=== PATIENT | male | born 1995 | race Caucasian/White ===

== ENCOUNTER 2023-03-03 15:18 | Emergency (ER) | payer BC, SELFPAY ==
[2023-03-03 15:23] VITALS: BP 161/90; PULSE 83; RESP 18; TEMP 36.8; O2SAT 99
--- NOTE | 2023-03-03 16:27 | ED.MALEGU ---
HPI - Male Genitourinary General Chief complaint: Urogenital-Male Stated complaint: Groin Pain Time Seen by Provider: 03/03/23 15:28 History of Present Illness HPI Narrative: Patient is a 27-year-old male who presents ER with groin pain. Left-sided. Ongoing over last week. Has been seen twice in having him on all a exiting [facility]. He has been told he has a hydrocele. Initially he is placed on Bactrim and prednisone. Yesterday he was placed on cefdinir. He was given urology referral because they do not have one. Discomfort persists. Denies STD exposure. No dysuria or urethral discharge. Related Data Allergies Allergy/AdvReac Type Severity Reaction Status Date / Time No Known Allergies Allergy Verified 03/03/23 15:29 Review of Systems Constitutional: Constitutional: Denies chills and Denies fever(s) Gastrointestinal: Gastrointestinal: Denies abdominal pain, Denies nausea and Denies vomiting Genitourinary: Genitourinary: Denies dysuria, Denies penile discharge and Denies testicular pain Comments: Scrotal swelling left side Integumentary/Breasts: Skin/Breast: Denies erythema and Denies rash Comments: Postural left groin PMFSH Past Medical History Medical History (Updated 03/03/23 @ 18:21 by Tee Rios MD) Healthy adult male Surgical History Surgical History (Updated 03/03/23 @ 18:21 by Tee Rios MD) No history of previous surgery Exam Narrative: GENERAL: Well-appearing, well-nourished, and in no acute distress. HEAD: Normocephalic, atraumatic. : Normal appearing penis. Scrotum swollen. There is left-sided edema. Inferiorly it seems consistent with hydrocele. More proximally there is firm induration and some pustules noted. After cleaning there is spontaneous drainage of a fluctuant area. There is tender lymphadenopathy going into the inguinal crease. EXTREMITIES: Normal range of motion. No edema. SKIN: Warm, dry, no rash. NEURO: Alert and oriented x3. PSYCH: Normal mood and affect. Course Course Emergency Course: Patient tolerated drainage very well. Copious pus expressed from the area. Urology contacted and recommends follow-up. Unable to get in until after Thanksgiving. Patient instructed to pull packing in 2 days. Discussed return precautions. Vital Signs Vital signs: Vital Signs Temperature 98.3 F 03/03/23 15:23 Pulse Rate 83 03/03/23 15:23 Respiratory Rate 18 03/03/23 15:23 Blood Pressure 161/90 H 03/03/23 15:23 Pulse Oximetry 99 03/03/23 15:23 Oxygen Delivery Room Air 03/03/23 15:23 Temperature 98.3 F 03/03/23 15:23 Pulse Rate 83 03/03/23 15:23 Respiratory Rate 18 03/03/23 15:23 Blood Pressure 161/90 H 03/03/23 15:23 Pulse Oximetry 99 03/03/23 15:23 Oxygen Delivery Room Air 03/03/23 15:23 Procedures Abscess I/D scrotum: Date of Incision: 03/03/23 Side (if applicable): left Local Anesthetic: lidocaine 1% and with epi Amount of anesthesia used (mL): 3 Technique: incised with #11 blade Packing used?: iodoform I&D Results: Pus Discharge Plan Discharge Clinical Impression: Scrotal abscess Patient Disposition: Home, Self-Care Condition: Stable Instructions: Abscess (ED) Additional Instructions: Your scrotal abscess was packed. Please remove the packing in 2 days. Contact urology to schedule a follow-up appointment. Continue to take your oral antibiotics. Return to the ER if you have increased pain, you cannot keep down food/water/medication, or you have additional concerns. Follow-up/Referrals: PHYSICIAN NOT ON STAFF,NONSTAFF [Primary Care Provider] - Tyrone Bass MD [Physician] - 1 Week
== END 2023-03-03 17:21 | disposition home or self-care (01) ==
PROVIDERS: Emergency Provider Emergency Medicine
DX: N49.2 Inflammatory disorders of scrotum (principal)
CPT/HCPCS: 55100; 99282